=== PATIENT | male | born 2000 | race Caucasian/White ===

== ENCOUNTER 2023-04-22 07:45 | Emergency (ER) | payer SELFPAY ==
[~2023-04-22] VITALS: Ht 162.6 cm; Wt 60.0 kg
[2023-04-22 07:49] VITALS: BP 131/90; PULSE 110; RESP 16; TEMP 98.4; O2SAT 100
[2023-04-22 09:01] LABS: CLARITY URINE CLEAR (CLEAR); COLOR URINE YELLOW (YELLOW); GLUCOSE URINE NEGATIVE (NEGATIVE); KETONES URINE NEGATIVE (NEGATIVE); LEUKOCYTE ESTERASE URINE NEGATIVE (NEGATIVE); NITRITE URINE NEGATIVE (NEGATIVE); OCCULT BLOOD URINE NEGATIVE (NEGATIVE); PROTEIN URINE NEGATIVE (NEGATIVE); SPECIFIC GRAVITY URINE 1.017 (1.005-1.030); UROBILINOGEN URINE 0.2 E.U./dL (0.2-1.0)
[2023-04-22 09:08] LABS: BASOPHILS % 0.9 % (0.0-2.0); EOSINOPHILS % 0.9 % (0.0-5.0); HEMATOCRIT. 44.7 % (42.0-52.0); HEMOGLOBIN. 15.3 g/dL (14.0-18.0); LYMPHOCYTES % 18.2 % (20.0-50.0); MEAN CORPUSCULAR HEMOGLOBIN 31.7 pg (28.0-32.0); MEAN CORPUSCULAR HGB CONC 34.3 g/dL (31.0-37.0); MEAN CORPUSCULAR VOLUME 92.5 fL (80.0-94.0); MEAN PLATELET VOLUME 9.8 fl (7.4-10.4); MONOCYTES % 7.1 % (2.0-8.0); NEUTROPHILS % 72.9 % (40.0-76.0); PLATELET 153 x1000/uL (130-400); RED BLOOD CELL COUNT 4.83 mill/uL (4.7-6.1); RED CELL DISTRIBUTION WIDTH 13.7 % (11.6-14.6); WHITE BLOOD COUNT 5.5 x1000/uL (4.5-11.0)
[2023-04-22 09:19] LABS: PROTHROMBIN TIME 10.9 sec (9.6-11.0)
[2023-04-22 09:21] LABS: CHLORIDE 107 mEq/L (98-107); INDEX HEMOLYSI 1 (1-3); INDEX ICTERIC 1 (1-4); INDEX LIPEMIC 1 (1-3); POTASSIUM 3.5 mEq/L (3.5-5.1); SODIUM 137 mEq/L (136-145)
[2023-04-22 09:34] LABS: ALANINE AMINOTRANSFERASE 20 IU/L (13-61); ALBUMIN 4.1 g/dL (3.4-5.0); ASPARTATE AMINOTRANSFERASE 16 IU/L (15-37); BILIRUBIN TOTAL 0.9 mg/dL (0.1-1.0); CALCIUM 9.1 mg/dL (8.5-10.1); CARBON DIOXIDE 26 mEq/L (21-32); CREATININE 0.8 mg/dL (0.6-1.3); GLUCOSE 109 mg/dL (70-105); TROPONIN I HIGH SENSITIVITY 6 ng/L (<78); UREA NITROGEN BLOOD 11 mg/dL (7-21)
== END 2023-04-22 10:29 | disposition home or self-care (01) ==
LOC: ER 07:45
DX: F41.9 Anxiety disorder, unspecified (principal); R00.0 Tachycardia, unspecified; F12.10 Cannabis abuse, uncomplicated
CPT/HCPCS: 36415; 80053; 81003; 84484; 85025; 99283